=== PATIENT | female | born 1990 | race Two or more races ===

== ENCOUNTER 2023-02-02 18:38 | Emergency (ER) | payer MEDICAID, OTHER ==
[~2023-02-02] VITALS: Ht 144.8 cm; Wt 58.9 kg
[2023-02-02 19:32] LABS: Basophils # (auto) 0 10 ^3/uL (0-0.2); Basophils % (auto) 0.7 % (0.0-2.0); Eosinophils # (auto) 0.2 10 ^3/uL (0-0.8); Eosinophils % (auto) 3.3 % (0.0-7.0); Hematocrit 32.3 % (36.0-46.0); Hemoglobin 10.5 g/dL (12.2-16.2); Lymphocytes # (auto) 2.5 10 ^3/uL (0.4-5.4); Lymphocytes % (auto) 35.6 % (10.0-50.0); Mean Corpuscular Hemoglobin 23.1 pg (28.0-32.0); Mean Corpuscular Hgb Conc. 32.5 g/dL (32.0-36.0); Mean Corpuscular Volume 71.2 fL (80.0-100.0); Monocytes # (auto) 0.7 10 ^3/uL (0-1.3); Monocytes % (auto) 10.3 % (0.0-12.0); Neutrophils # (auto) 3.5 10 ^3/uL (1.6-8.6); Neutrophils % (auto) 50.1 % (37.0-80.0); Red Blood Cells 4.53 10^6/uL (4.0-5.20); Red Cell Distribution Width 16.3 % (11.8-14.3); White Blood Cell 6.9 10^3/uL (4.4-10.8)
[2023-02-02 19:38] LABS: Urine Bacteria NONE SEEN /hpf (None Seen); Urine Blood 3+ /uL (Negative); Urine Clarity HAZY (Clear); Urine Color Yellow (Yellow); Urine Mucus FEW (None Seen); Urine Protein, UAD TRACE (Negative); Urine Specific Gravity 1.027 (1.001-1.035); Urine WBC 12 /hpf (0 - 5); Urine pH 5.5 (5.0-8.0)
[2023-02-02 19:48] LABS: Alanine Aminotransferase 34 U/L (7-40); Albumin 4.5 g/dL (3.2-4.8); Alkaline Phosphatase 72 U/L (46-116); Aspartate Aminotransferase 9 U/L (13-40); BUN/Creatinine Ratio 13.9 (10.0-20.0); Bilirubin, Total 0.2 mg/dL (0.2-1.0); Blood Urea Nitrogen 11 mg/dL (9-23); Calcium 9.4 mg/dL (8.7-10.4); Chloride 106 mmol/L (98-107); Glucose 111 mg/dL (74-106); Potassium 3.9 mmol/L (3.5-5.1); Sodium 139 mmol/L (136-145)
[2023-02-02] MEDS ORDERED: SODIUM CHLORIDE 0.9% 1,000 ML IV ONE (20:30)
[2023-02-02 23:29] LABS: Eosinophils # (auto) 0.3 10 ^3/uL (0-0.8); Eosinophils % (auto) 3.9 % (0.0-7.0); Lymphocytes # (auto) 2.9 10 ^3/uL (0.4-5.4); Mean Corpuscular Volume 71.9 fL (80.0-100.0); Monocytes # (auto) 0.7 10 ^3/uL (0-1.3); Nucleated Red Blood Cells % 0.1 %; Red Cell Distribution Width 16.5 % (11.8-14.3)
[2023-02-02 23:31] LABS: Basophils # (auto) 0 10 ^3/uL (0-0.2); Basophils % (auto) 0.7 % (0.0-2.0); Hematocrit 31.2 % (36.0-46.0); Lymphocytes % (auto) 42.2 % (10.0-50.0); Mean Corpuscular Hemoglobin 23.1 pg (28.0-32.0); Mean Corpuscular Hgb Conc. 32.1 g/dL (32.0-36.0); Monocytes % (auto) 10.7 % (0.0-12.0); Neutrophils # (auto) 2.9 10 ^3/uL (1.6-8.6); Neutrophils % (auto) 42.5 % (37.0-80.0); Red Blood Cells 4.34 10^6/uL (4.0-5.20); White Blood Cell 6.9 10^3/uL (4.4-10.8)
[2023-02-03 02:00] LABS: Rapid Strep A Screen-Throat Negative
[2023-02-03 02:20] VITALS: BP 129/71; PULSE 66; RESP 18; TEMP 98.2; O2SAT 100
== END 2023-02-03 02:40 | disposition home or self-care (01) ==
LOC: ER 18:38
DX: J02.9 Acute pharyngitis, unspecified (principal); D64.9 Anemia, unspecified; J45.909 Unspecified asthma, uncomplicated
CPT/HCPCS: 36415; 80053; 81001; 84484; 85025; 86308; 86850; 86900; 86901; 87070; 87880; 96360; 99283; J7030

== ENCOUNTER 2024-01-23 19:52 | Inpatient (IN) | payer MEDICAID ==
[~2024-01-23] VITALS: Ht 154.9 cm; Wt 66.6 kg
[2024-01-23] MEDS: MORPHINE SULFATE 4 MG/ML SYR/VIAL IM ONE (21:05)
[2024-01-23] MEDS: ONDANSETRON HCL 4 MG/2 ML VIAL IM ONE (21:06)
[2024-01-23 21:09] LABS: Eosinophils # (auto) 0.1 10 ^3/uL (0-0.8); Hemoglobin 9.4 g/dL (12.2-16.2); Lymphocytes # (auto) 1.7 10 ^3/uL (0.4-5.4); Monocytes # (auto) 0.7 10 ^3/uL (0-1.3); Nucleated Red Blood Cells % 0.1 %
[2024-01-23 21:10] LABS: Basophils # (auto) 0 10 ^3/uL (0-0.2); Basophils % (auto) 0.8 % (0.0-2.0); Eosinophils % (auto) 1.1 % (0.0-7.0); Hematocrit 29.6 % (36.0-46.0); Lymphocytes % (auto) 29.1 % (10.0-50.0); Mean Corpuscular Hemoglobin 21.6 pg (28.0-32.0); Mean Corpuscular Hgb Conc. 31.9 g/dL (32.0-36.0); Mean Corpuscular Volume 67.8 fL (80.0-100.0); Monocytes % (auto) 12.7 % (0.0-12.0); Neutrophils # (auto) 3.3 10 ^3/uL (1.6-8.6); Neutrophils % (auto) 56.3 % (37.0-80.0); Platelet Count (auto) 350 10^3/uL (140-450); Red Blood Cells 4.36 10^6/uL (4.0-5.20); Red Cell Distribution Width 16.6 % (11.8-14.3); White Blood Cell 5.8 10^3/uL (4.4-10.8)
[2024-01-23 21:29] LABS: Alanine Aminotransferase 378 U/L (7-40); Alkaline Phosphatase 124 U/L (46-116); Aspartate Aminotransferase 566 U/L (13-40); Calcium 9.5 mg/dL (8.7-10.4)
[2024-01-23 21:30] LABS: Albumin 4.7 g/dL (3.2-4.8); Anion Gap 7 (5-15); BUN/Creatinine Ratio 10.2 (10.0-20.0); Bilirubin, Total 0.3 mg/dL (0.2-1.0); Blood Urea Nitrogen 9 mg/dL (9-23); Carbon Dioxide 26 mmol/L (20-30); Chloride 107 mmol/L (98-107); Glucose 94 mg/dL (74-106); Lipase 102 U/L (12-53); Potassium 3.5 mmol/L (3.5-5.1); Sodium 140 mmol/L (136-145); Total Protein 7.4 g/dL (5.7-8.2)
[2024-01-23] MEDS: SODIUM CHLORIDE 0.9% 1,000 ML IV ONE (23:00)
[2024-01-24] MEDS ORDERED: DOCUSATE SOD 100 MG CAP PO PRN (00:15)
[2024-01-24] MEDS: D5W/SOD CHL 0.45% 1,000 ML IV SCH (00:15)
[2024-01-24] MEDS ORDERED: IBUPROFEN 600 MG TAB PO PRN (00:15)
[2024-01-24] MEDS ORDERED: MORPHINE SULFATE INJ 2 MG/ml SYRG IV PRN (03:30)
[2024-01-24] MEDS ORDERED: NITROGLYCERIN 0.4 MG SL TAB SL PRN (03:30)
[2024-01-24 04:37] LABS: Basophils # (auto) 0 10 ^3/uL (0-0.2); Eosinophils # (auto) 0.1 10 ^3/uL (0-0.8); Hemoglobin 8.1 g/dL (12.2-16.2); Mean Corpuscular Hemoglobin 21.1 pg (28.0-32.0); Mean Corpuscular Hgb Conc. 30.9 g/dL (32.0-36.0); Monocytes # (auto) 0.6 10 ^3/uL (0-1.3); Neutrophils # (auto) 3.1 10 ^3/uL (1.6-8.6); Red Cell Distribution Width 16.8 % (11.8-14.3)
[2024-01-24 04:39] LABS: Basophils % (auto) 0.6 % (0.0-2.0); Eosinophils % (auto) 1.7 % (0.0-7.0); Hematocrit 26.1 % (36.0-46.0); Lymphocytes # (auto) 1.5 10 ^3/uL (0.4-5.4); Lymphocytes % (auto) 28.4 % (10.0-50.0); Mean Corpuscular Volume 68.2 fL (80.0-100.0); Monocytes % (auto) 11.9 % (0.0-12.0); Neutrophils % (auto) 57.4 % (37.0-80.0); Nucleated Red Blood Cells % 0.1 %; Platelet Count (auto) 281 10^3/uL (140-450); Red Blood Cells 3.82 10^6/uL (4.0-5.20); White Blood Cell 5.3 10^3/uL (4.4-10.8)
[2024-01-24 04:54] LABS: Platelet Estimate Adequate
[2024-01-24 04:55] LABS: Alanine Aminotransferase 355 U/L (7-40); Albumin 3.8 g/dL (3.2-4.8); Alkaline Phosphatase 102 U/L (46-116); Anion Gap 5 (5-15); Aspartate Aminotransferase 384 U/L (13-40); BUN/Creatinine Ratio 11.4 (10.0-20.0); Bilirubin, Total 0.3 mg/dL (0.2-1.0); Blood Urea Nitrogen 8 mg/dL (9-23); Calcium 8.3 mg/dL (8.7-10.4); Carbon Dioxide 26 mmol/L (20-30); Chloride 108 mmol/L (98-107); Glucose 97 mg/dL (74-106); Hypochromia Slight; Potassium 3.5 mmol/L (3.5-5.1); Sodium 139 mmol/L (136-145); Total Protein 6.1 g/dL (5.7-8.2)
[2024-01-24 05:14] VITALS: PULSE 65; RESP 17; O2SAT 95
[2024-01-24 08:25] VITALS: PULSE 78; RESP 19; O2SAT 96
[2024-01-24 09:00] VITALS: BP 103/67; PULSE 72; RESP 17; TEMP 98.6; O2SAT 99
[2024-01-24] MEDS: PANTOPRAZOLE 40 MG/10 ML VIAL INJ IV SCH (10:55)
[2024-01-24 13:00] VITALS: BP 99/56; PULSE 78; RESP 18; TEMP 98.6; O2SAT 100
[2024-01-24 16:36] VITALS: BP 109/66; PULSE 66; RESP 16; TEMP 98; O2SAT 100
[2024-01-24] MEDS: D5W/SOD CHLO 0.9% 1,000 ML IV SCH (17:59)
[2024-01-24 21:00] VITALS: BP 109/63; PULSE 63; RESP 16; TEMP 98.5; O2SAT 100
[2024-01-25] VITALS (7 sets, daily range): BP systolic 106–128; BP diastolic 67–78; PULSE 63–106; RESP 16–20; TEMP 97.9–98.6; O2SAT 96–100
[2024-01-25 06:09] LABS: Basophils # (auto) 0 10 ^3/uL (0-0.2); Basophils % (auto) 0.9 % (0.0-2.0); Eosinophils # (auto) 0.1 10 ^3/uL (0-0.8); Lymphocytes # (auto) 2.1 10 ^3/uL (0.4-5.4); Monocytes # (auto) 0.6 10 ^3/uL (0-1.3); Neutrophils # (auto) 1.7 10 ^3/uL (1.6-8.6); White Blood Cell 4.5 10^3/uL (4.4-10.8)
[2024-01-25 06:15] LABS: Eosinophils % (auto) 2.5 % (0.0-7.0); Hematocrit 26.4 % (36.0-46.0); Hemoglobin 8.4 g/dL (12.2-16.2); Lymphocytes % (auto) 47.3 % (10.0-50.0); Mean Corpuscular Hemoglobin 21.8 pg (28.0-32.0); Mean Corpuscular Hgb Conc. 31.7 g/dL (32.0-36.0); Mean Corpuscular Volume 68.9 fL (80.0-100.0); Monocytes % (auto) 12.8 % (0.0-12.0); Neutrophils % (auto) 36.5 % (37.0-80.0); Platelet Count (auto) 274 10^3/uL (140-450); Red Blood Cells 3.84 10^6/uL (4.0-5.20)
[2024-01-25 06:35] LABS: Alanine Aminotransferase 219 U/L (7-40); Alkaline Phosphatase 89 U/L (46-116); Anion Gap 5 (5-15); Calcium 8.5 mg/dL (8.7-10.4); Carbon Dioxide 25 mmol/L (20-30); Chloride 111 mmol/L (98-107); Lipase 71 U/L (12-53); Potassium 3.9 mmol/L (3.5-5.1); Sodium 141 mmol/L (136-145)
[2024-01-25 06:36] LABS: Albumin 3.7 g/dL (3.2-4.8); Aspartate Aminotransferase 124 U/L (13-40)
[2024-01-25 06:37] LABS: Bilirubin, Total 0.3 mg/dL (0.2-1.0); Total Protein 5.9 g/dL (5.7-8.2)
[2024-01-25 06:41] LABS: Glucose 87 mg/dL (74-106)
[2024-01-25 06:44] LABS: BUN/Creatinine Ratio 7.6 (10.0-20.0); Blood Urea Nitrogen < 5 mg/dL (9-23)
[2024-01-25 06:50] LABS: Urine Bacteria FEW /hpf (None Seen); Urine Blood Negative /uL (Negative); Urine Clarity Clear (Clear); Urine Color Light-Yellow (Yellow); Urine Mucus FEW (None Seen); Urine Protein, UAD Negative (Negative); Urine Specific Gravity 1.011 (1.001-1.035); Urine Urobilinogen Normal (Negative); Urine WBC <1 /hpf (0 - 5)
[2024-01-25] MEDS: ceFAZolin 2 GM/D5W50ml 50 ML IV ONE (10:49)
[2024-01-25] MEDS ORDERED: MIDAZOLAM HCL 2MG/2ML 2ml VIAL (1mg/ml) ONE (11:14)
[2024-01-25] MEDS ORDERED: MEPERIDINE HCL (50 MG/ML) 1 ML VIAL ONE (11:14)
[2024-01-25] MEDS ORDERED: fentaNYL CITRATE 100 MCG/2 ML VL ONE (11:14)
[2024-01-25] MEDS ORDERED: ePHEDrine SULFATE 50 MG/ML AMP IV PRN (12:00)
[2024-01-25] MEDS ORDERED: MIDAZOLAM HCL 2MG/2ML 2ml VIAL (1mg/ml) IV PRN (12:00)
[2024-01-25] MEDS ORDERED: MORPHINE SULFATE 4 MG/ML SYR/VIAL IV PRN (12:00)
[2024-01-25] MEDS: ONDANSETRON HCL 4 MG/2 ML VIAL IV ONE (12:00)
[2024-01-25] MEDS ORDERED: hydrALAZINE HCL 20 MG/ML VL IV PRN (12:00)
[2024-01-25] MEDS: KETOROLAC TROMETH 30 MG/ML 1ML VIAL IV ONE (12:00)
[2024-01-25] MEDS ORDERED: PROPOFOL 10 MG/ML 20 ML IV ONE (12:20)
[2024-01-25] MEDS ORDERED: ONDANSETRON HCL 4 MG/2 ML VIAL ONE (12:20)
[2024-01-25] MEDS ORDERED: DexAMETHasone SOD PHOS 10MG/1ML VIAL INJ ONE (12:20)
[2024-01-25] MEDS ORDERED: SUGAMMADEX 200mg/2ml Vial (100MG/ML) IV ONE (12:20)
[2024-01-25] MEDS: LIDOCAINE W/ EPINEPHRINE 1% 20ML VIAL ONE (12:25)
[2024-01-25 13:13] LABS: Amphetamine Screen, Urine Neg (NEGATIVE); Barbiturate Scree,Urine Neg (NEGATIVE); Benzodiazephine Screen, Urine Neg (NEGATIVE)
[2024-01-25 13:14] LABS: Cocaine Screen, Urine Neg (NEGATIVE); Opiate Scree,Urine Neg (NEGATIVE); Phencyclidine Screen, Urine Neg (NEGATIVE)
[2024-01-25 13:15] LABS: Cannabinoid Screen, Urine Neg (NEGATIVE)
[2024-01-25] MEDS: HYDROmorphone HCL 2 MG/ML VL/or syr IV PRN (13:20)
[2024-01-25 18:36] LABS: % Iron Saturation 5.3 % (15-50)
[2024-01-25] MEDS: HYDROcodone-ACET 5/325MG TAB PO PRN (18:46)
[2024-01-25 18:50] LABS: Folate (Folic Acid) 18.13 ng/mL (>5.38)
[2024-01-25] MEDS: ONDANSETRON HCL 4 MG/2 ML VIAL IV PRN (20:20)
[2024-01-25] MEDS: MORPHINE SULFATE INJ 2 MG/ml SYRG IV PRN (20:22)
[2024-01-26 01:00] VITALS: BP 101/58; PULSE 80; RESP 16; TEMP 98; O2SAT 96
[2024-01-26 05:00] VITALS: BP 104/56; PULSE 63; RESP 17; TEMP 98.5; O2SAT 98
[2024-01-26 06:14] LABS: Alanine Aminotransferase 247 U/L (7-40); Albumin 3.9 g/dL (3.2-4.8); Alkaline Phosphatase 147 U/L (46-116); Anion Gap 6 (5-15); Aspartate Aminotransferase 160 U/L (13-40); Basophils # (auto) 0 10 ^3/uL (0-0.2); Calcium 8.9 mg/dL (8.7-10.4); Carbon Dioxide 24 mmol/L (20-30); Chloride 108 mmol/L (98-107); Eosinophils # (auto) 0 10 ^3/uL (0-0.8); Glucose 110 mg/dL (74-106); Lipase 49 U/L (12-53); Lymphocytes # (auto) 1.2 10 ^3/uL (0.4-5.4); Neutrophils # (auto) 8.1 10 ^3/uL (1.6-8.6); Sodium 138 mmol/L (136-145); Total Protein 6.2 g/dL (5.7-8.2); White Blood Cell 10.1 10^3/uL (4.4-10.8)
[2024-01-26 06:15] LABS: Bilirubin, Total 0.3 mg/dL (0.2-1.0)
[2024-01-26 06:18] LABS: Hematocrit 26.6 % (36.0-46.0); Hemoglobin 8.8 g/dL (12.2-16.2); Lymphocytes % (auto) 11.6 % (10.0-50.0); Mean Corpuscular Hemoglobin 22.3 pg (28.0-32.0); Mean Corpuscular Hgb Conc. 32.9 g/dL (32.0-36.0); Mean Corpuscular Volume 67.7 fL (80.0-100.0); Monocytes # (auto) 0.9 10 ^3/uL (0-1.3); Monocytes % (auto) 8.4 % (0.0-12.0); Platelet Count (auto) 314 10^3/uL (140-450); Red Blood Cells 3.93 10^6/uL (4.0-5.20); Red Cell Distribution Width 16.8 % (11.8-14.3)
[2024-01-26 06:24] LABS: BUN/Creatinine Ratio 8.3 (10.0-20.0); Blood Urea Nitrogen < 5 mg/dL (9-23)
[2024-01-26 07:25] VITALS: BP 112/74; PULSE 74; RESP 18; TEMP 98.6; O2SAT 100
[2024-01-26] MEDS: LACTULOSE 20Gm/30ML SOLN PO ONE (10:10)
[2024-01-26 12:14] VITALS: BP 121/75; PULSE 71; RESP 18; TEMP 98.2; O2SAT 99
[2024-01-26 16:59] VITALS: BP 120/77; PULSE 75; RESP 18; TEMP 98.4; O2SAT 99
[2024-01-26] MEDS: ACETAMINOPHEN 325 MG TAB PO ONE (17:23)
[2024-01-26] MEDS ORDERED: DOCU-265 PO (17:46)
[2024-01-26] MEDS ORDERED: ROCURONIUM 10MG/ML 10ML VIAL IV ONE (20:09)
[2024-01-26] MEDS ORDERED: PHENYLEPHRINE HCL 10 MG/ML VL IV ONE (20:09)
== END 2024-01-26 20:10 | disposition home or self-care (01) | DRG 263 ==
LOC: ER 19:52 → OVERFLOW 01-24 03:28 → EAST 01-24 03:28
PROVIDERS: ADMIT Internal Medicine Pulmonary Disease; ATTEND Emergency Medicine
PROC: 0FT44ZZ Resection of Gallbladder, Percutaneous Endoscopic Approach (ICD-10-PCS; principal; 2024-01-25 11:38)
DX: K85.10 Biliary acute pancreatitis without necrosis or infection (principal); K80.00 Calculus of gallbladder with acute cholecystitis without obstruction; R74.8 Abnormal levels of other serum enzymes; E83.51 Hypocalcemia; R74.01 Elevation of levels of liver transaminase levels; D50.9 Iron deficiency anemia, unspecified; Z80.3 Family history of malignant neoplasm of breast
CPT/HCPCS: 36415; 76705; 80053; 80307; 80320; 81001; 81025; 82607; 82746; 83540; 83550; 83605; 83690; 85025; 93005; 96372; G0378; J1100; J2250; J2405; J2470; J2704